=== PATIENT | female | born 1995 | race African-American/Black ===

== ENCOUNTER → 2017-03-12 | Outpatient (CLI) | payer OTHER ==
[2014-07-27 04:10] VITALS: BP 120/66
--- NOTE | 2017-03-12 15:36 | RAD ---
DATE: 03/12/2017 EXAM: DIGITAL DIAGNOSTIC BILATERAL HISTORY: Bilateral breast pain, family history of breast cancer COMPARISON: Baseline study This study was interpreted with the benefit of Computerized Aided Detection (CAD). The breast parenchyma is heterogeneously dense, which could reduce sensitivity of mammography. Breast parenchyma level C. FINDINGS: No suspicious breast densities are identified. No microcalcifications are evident. The skin and axillary regions are unremarkable. IMPRESSION: 1. No significant abnormality is identified. 2. Clinical surveillance is suggested. Follow-up mammography at age 35 or earlier if clinically indicated. BI-RADS 1-negative Mammography is a sensitive method for finding small breast cancers, but it does not detect them all and is not a substitute for careful clinical examination. A negative mammogram does not negate a clinically suspicious finding and should not result in delay in biopsying a clinically suspicious abnormality. "Our facility is accredited by the [employer] Mammography Program."
== END | disposition home or self-care (01) ==
LOC: MAMMO 13:45
PROVIDERS: ATTEND Obstetrics & Gynecology
DX: N64.4 Mastodynia (principal); Z80.3 Family history of malignant neoplasm of breast
CPT/HCPCS: G0204; 77066

== ENCOUNTER 2017-04-13 20:39 | Emergency (ER) | payer OTHER ==
[2017-04-13 20:59] LABS: URINE HCG POC HCG NEGATIVE (Negative)
[2017-04-13] MEDS: IV NORMAL SALINE 1000ML BAG 1,000 ML IV (21:25)
[2017-04-13] MEDS: METOCLOPRAMIDE HCL 10 MG/2 ML VIAL. IV (21:32)
[2017-04-13] MEDS: diphenhydrAMINE 50 MG/ML VIAL IV (21:33)
[2017-04-13] MEDS: DEXAMETHASONE SOD PHOS 4 MG/ML VIAL IV (21:35)
[2017-04-13 21:54] LABS: OBC FLU VALID
== END 2017-04-13 22:40 | disposition home or self-care (01) ==
LOC: ER 20:39
DX: G43.909 Migraine, unspecified, not intractable, without status migrainosus (principal); R05 Cough; M79.1 Myalgia; J45.909 Unspecified asthma, uncomplicated; Z88.8 Allergy status to other drugs, medicaments and biological substances
CPT/HCPCS: 71010; 81025; 87804; 87804-59; 93005; 96361; 96374; 96375; 99285-25; J1100; J1200; J2765; J7030

== ENCOUNTER 2018-06-09 20:53 | Emergency (ER) | payer OTHER ==
[~2018-06-09] VITALS: Ht 182.9 cm; Wt 88.5 kg
--- NOTE | 2018-06-09 21:12 | PHYS DOC ---
Past Medical History Past Medical History: Asthma, Migraines (HAYDE HEATH APRN) Past Surgical History: No Surgical History (HAYDE HEATH APRN) Alcohol Use: None Drug Use: None (HAYDE HEATH APRN) Adult General Chief Complaint Chief Complaint: CHEST WALL PAIN HPI HPI Patient is a 23 year old female with history of asthma, migraine headaches, who presents to the ED today complaining of 10 out of 10 left-sided chest pain radiating to her back that began sometime today. Patient denies anything specifically exacerbating or making the pain better. She states the pain is constant. She states she's tried taking naproxen with no relief. Denies any nausea, vomiting, denies any chance she is . (HAYDE HEATH APRN) Review of Systems Review of Systems Constitutional: Denies fever or chills [] Eyes: Denies change in visual acuity, redness, or eye pain [] HENT: Denies nasal congestion or sore throat [] Respiratory: Denies cough or shortness of breath [] Cardiovascular: Reports left-sided chest pain GI: Denies abdominal pain, nausea, vomiting, bloody stools or diarrhea [] : Denies dysuria or hematuria [] Musculoskeletal: Denies back pain or joint pain [] Integument: Denies rash or skin lesions [] Neurologic: Denies headache, focal weakness or sensory changes [] All other systems were reviewed and found to be within normal limits, except as documented in this note. (HAYDE HEATH APRN) Current Medications Current Medications Current Medications Medications (Trade) Dose Ordered Sig/Mili Start Time Stop Time Status Last Admin Dose Admin Aspirin (Vidya Aspirin) 325 mg 1X ONCE 06/09/18 21:15 06/09/18 21:16 DC 06/09/18 21:48 325 MG Cyclobenzaprine HCl (Flexeril) 10 mg 1X ONCE 06/09/18 22:45 06/09/18 22:46 DC 06/09/18 23:05 10 MG Morphine Sulfate (Morphine Sulfate) 2 mg 1X ONCE 06/09/18 22:45 06/09/18 22:46 DC 06/09/18 23:06 2 MG (ALEXA GUEVARA MD) Allergies Allergies Allergies Coded Allergies Type Severity Reaction Last Updated Verified cetirizine Allergy Unknown Anaphylaxis 08/16/13 Yes (ALEXA GUEVARA MD) Physical Exam Physical Exam Constitutional: Well developed, well nourished, no acute distress, non-toxic appearance. [] HENT: Normocephalic, atraumatic, bilateral external ears normal, oropharynx moist, no oral exudates, nose normal. [] Eyes: PERRLA, EOMI, conjunctiva normal, no discharge. [] Neck: Normal range of motion, no tenderness, supple, no stridor. [] Cardiovascular:Heart rate regular rhythm, no murmur [] Lungs & Thorax: Anterior lung bases are clear, patient unable to sit forward and let me listen to her lungs posteriorly. Abdomen: Bowel sounds normal, soft, no tenderness, no masses, no pulsatile masses. [] Skin: Warm, dry, no erythema, no rash. [] Back: No tenderness, no CVA tenderness. [] Extremities: No tenderness, no cyanosis, no clubbing, ROM intact, no edema. [] Neurologic: Alert and oriented X 3, normal motor function, normal sensory function, no focal deficits noted. [] Psychologic: Affect normal, judgement normal, mood normal. [] (HAYDE HEATH APRN) Current Patient Data Vital Signs Vital Signs Date Time Temp Pulse Resp B/P (MAP) Pulse Ox O2 Delivery O2 Flow Rate FiO2 06/09/18 23:00 58 20 114/75 (88) 100 Room Air 06/09/18 21:00 98.3 98.3 (ALEXA GUEVARA MD) Lab Values Laboratory Tests Test 06/09/18 21:10 06/09/18 21:26 White Blood Count 6.2 x10^3/uL (4.0-11.0) Red Blood Count 4.08 x10^6/uL (3.50-5.40) Hemoglobin 12.5 g/dL (12.0-15.5) Hematocrit 37.5 % (36.0-47.0) Mean Corpuscular Volume 92 fL (79-100) Mean Corpuscular Hemoglobin 31 pg (25-35) Mean Corpuscular Hemoglobin Concent 34 g/dL (31-37) Red Cell Distribution Width 13.0 % (11.5-14.5) Platelet Count 218 x10^3/uL (140-400) Neutrophils (%) (Auto) 51 % (31-73) Lymphocytes (%) (Auto) 35 % (24-48) Monocytes (%) (Auto) 10 % (0-9) H Eosinophils (%) (Auto) 4 % (0-3) H Basophils (%) (Auto) 1 % (0-3) Neutrophils # (Auto) 3.1 x10^3uL (1.8-7.7) Lymphocytes # (Auto) 2.1 x10^3/uL (1.0-4.8) Monocytes # (Auto) 0.6 x10^3/uL (0.0-1.1) Eosinophils # (Auto) 0.3 x10^3/uL (0.0-0.7) Basophils # (Auto) 0.0 x10^3/uL (0.0-0.2) Prothrombin Time 12.5 SEC (11.7-14.0) Prothrombin Time INR 1.0 (0.8-1.1) D-Dimer (Shakira) < 0.27 ug/mlFEU Urine Collection Type Unknown Urine Color Yellow Urine Clarity Clear Urine pH 6.5 Urine Specific [place] >=1.030 Urine Protein Negative mg/dL (NEG-TRACE) Urine Glucose (UA) Negative mg/dL (NEG) Urine Ketones (Stick) Negative mg/dL (NEG) Urine Blood Negative (NEG) Urine Nitrite Negative (NEG) Urine Bilirubin Negative (NEG) Urine Urobilinogen Dipstick 1.0 mg/dL (0.2 mg/dL) Urine Leukocyte Esterase Negative (NEG) Urine RBC 0 /HPF (0-2) Urine WBC 0 /HPF (0-4) Urine Squamous Epithelial Cells Mod /LPF Urine Bacteria Few /HPF (0-FEW) Urine Mucus Marked /LPF Sodium Level 140 mmol/L (136-145) Potassium Level 4.2 mmol/L (3.5-5.1) Chloride Level 104 mmol/L (98-107) Carbon Dioxide Level 29 mmol/L (21-32) Anion Gap 7 (6-14) Blood Urea Nitrogen 17 mg/dL (7-20) Creatinine 0.7 mg/dL (0.6-1.0) Estimated GFR (Cockcroft-Gault) 123.4 BUN/Creatinine Ratio 24 (6-20) H Glucose Level 87 mg/dL (70-99) Calcium Level 8.9 mg/dL (8.5-10.1) Magnesium Level 2.2 mg/dL (1.8-2.4) Total Bilirubin 0.3 mg/dL (0.2-1.0) Aspartate Amino Transferase (AST) 15 U/L (15-37) Alanine Aminotransferase (ALT) 22 U/L (14-59) Alkaline Phosphatase 79 U/L (46-116) Creatine Kinase 285 U/L (26-192) H Creatine Kinase MB (Mass) 1.1 ng/mL (0.0-3.6) Creatine Kinase MB Relative Index 0.4 % (0-4) Troponin I Quantitative < 0.017 ng/mL (0.000-0.055) KR-Gxm-A-Type Natriuretic Peptide 34 pg/mL (0-124) Total Protein 7.9 g/dL (6.4-8.2) Albumin 3.9 g/dL (3.4-5.0) Albumin/Globulin Ratio 1.0 (1.0-1.7) Lipase 142 U/L (73-393) Thyroid Stimulating Hormone (TSH) 0.875 uIU/mL (0.358-3.74) Urine Opiates Screen Neg (NEG) Urine Methadone Screen Neg (NEG) Urine Barbiturates Neg (NEG) Urine Phencyclidine Screen Neg (NEG) Urine Amphetamine/Methamphetamine Neg (NEG) Urine Benzodiazepines Screen Neg (NEG) Urine Cocaine Screen Neg (NEG) Urine Cannabinoids Screen Pos (NEG) Urine Ethyl Alcohol Neg (NEG) POC Urine HCG, Qualitative Hcg negative (Negative) Laboratory Tests 06/09/18 21:10 Laboratory Tests 06/09/18 21:10 (ALEXA GUEVARA MD) Lab Values Laboratory Tests Test 06/09/18 21:10 06/09/18 21:26 White Blood Count 6.2 x10^3/uL (4.0-11.0) Red Blood Count 4.08 x10^6/uL (3.50-5.40) Hemoglobin 12.5 g/dL (12.0-15.5) Hematocrit 37.5 % (36.0-47.0) Mean Corpuscular Volume 92 fL (79-100) Mean Corpuscular Hemoglobin 31 pg (25-35) Mean Corpuscular Hemoglobin Concent 34 g/dL (31-37) Red Cell Distribution Width 13.0 % (11.5-14.5) Platelet Count 218 x10^3/uL (140-400) Neutrophils (%) (Auto) 51 % (31-73) Lymphocytes (%) (Auto) 35 % (24-48) Monocytes (%) (Auto) 10 % (0-9) H Eosinophils (%) (Auto) 4 % (0-3) H Basophils (%) (Auto) 1 % (0-3) Neutrophils # (Auto) 3.1 x10^3uL (1.8-7.7) Lymphocytes # (Auto) 2.1 x10^3/uL (1.0-4.8) Monocytes # (Auto) 0.6 x10^3/uL (0.0-1.1) Eosinophils # (Auto) 0.3 x10^3/uL (0.0-0.7) Basophils # (Auto) 0.0 x10^3/uL (0.0-0.2) Prothrombin Time 12.5 SEC (11.7-14.0) Prothrombin Time INR 1.0 (0.8-1.1) D-Dimer (Shakira) < 0.27 ug/mlFEU Urine Collection Type Unknown Urine Color Yellow Urine Clarity Clear Urine pH 6.5 Urine Specific [place] >=1.030 Urine Protein Negative mg/dL (NEG-TRACE) Urine Glucose (UA) Negative mg/dL (NEG) Urine Ketones (Stick) Negative mg/dL (NEG) Urine Blood Negative (NEG) Urine Nitrite Negative (NEG) Urine Bilirubin Negative (NEG) Urine Urobilinogen Dipstick 1.0 mg/dL (0.2 mg/dL) Urine Leukocyte Esterase Negative (NEG) Urine RBC 0 /HPF (0-2) Urine WBC 0 /HPF (0-4) Urine Squamous Epithelial Cells Mod /LPF Urine Bacteria Few /HPF (0-FEW) Urine Mucus Marked /LPF Sodium Level 140 mmol/L (136-145) Potassium Level 4.2 mmol/L (3.5-5.1) Chloride Level 104 mmol/L (98-107) Carbon Dioxide Level 29 mmol/L (21-32) Anion Gap 7 (6-14) Blood Urea Nitrogen 17 mg/dL (7-20) Creatinine 0.7 mg/dL (0.6-1.0) Estimated GFR (Cockcroft-Gault) 123.4 BUN/Creatinine Ratio 24 (6-20) H Glucose Level 87 mg/dL (70-99) Calcium Level 8.9 mg/dL (8.5-10.1) Magnesium Level 2.2 mg/dL (1.8-2.4) Total Bilirubin 0.3 mg/dL (0.2-1.0) Aspartate Amino Transferase (AST) 15 U/L (15-37) Alanine Aminotransferase (ALT) 22 U/L (14-59) Alkaline Phosphatase 79 U/L (46-116) Creatine Kinase 285 U/L (26-192) H Creatine Kinase MB (Mass) 1.1 ng/mL (0.0-3.6) Creatine Kinase MB Relative Index 0.4 % (0-4) Troponin I Quantitative < 0.017 ng/mL (0.000-0.055) GX-Ifb-C-Type Natriuretic Peptide 34 pg/mL (0-124) Total Protein 7.9 g/dL (6.4-8.2) Albumin 3.9 g/dL (3.4-5.0) Albumin/Globulin Ratio 1.0 (1.0-1.7) Lipase 142 U/L (73-393) Thyroid Stimulating Hormone (TSH) 0.875 uIU/mL (0.358-3.74) Urine Opiates Screen Neg (NEG) Urine Methadone Screen Neg (NEG) Urine Barbiturates Neg (NEG) Urine Phencyclidine Screen Neg (NEG) Urine Amphetamine/Methamphetamine Neg (NEG) Urine Benzodiazepines Screen Neg (NEG) Urine Cocaine Screen Neg (NEG) Urine Cannabinoids Screen Pos (NEG) Urine Ethyl Alcohol Neg (NEG) POC Urine HCG, Qualitative Hcg negative (Negative) Laboratory Tests 06/09/18 21:10 Laboratory Tests 06/09/18 21:10 (HAYDE HEATH APRN) EKG EKG [] (HAYDE HEATH APRN) Radiology/Procedures Radiology/Procedures [] (HAYDE HEATH APRN) Course & Med Decision Making Course & Med Decision Making Pertinent Labs and Imaging studies reviewed. (See chart for details) This is a 23-year-old. Presenting to the ED today with chest pain that began this morning. Pain radiates to the back. EKG is negative for any acute findings , troponin is normal, d-dimer is normal, chest x-ray is negative, CBC, CMP with no acute findings. Urine analysis is negative for infection, negative urine hCG. Patient's pain is well controlled. Discharged with diclofenac and cyclobenzaprine for home use. Follow-up with primary care doctor or clinical education coordinator in one week. (HAYDE HEATH APRN) Course & Med Decision Making Staff Physician Addendum: I was working in the ER during the course of this patient's visit. I was available for consultation as needed, but I was not directly involved in the care of this patient. (ALEXA GUEVARA MD) Dragon Disclaimer Dragon Disclaimer This electronic medical record was generated, in whole or in part, using a voice recognition dictation system. (HAYDE HEATH APRN) Departure Departure Impression: Primary Impression: Chest pain Disposition: HOME, SELF-CARE Condition: STABLE Referrals: NO PCP (PCP) Follow-up in one week KENDRA VALENZUELA MD Patient Instructions: Chest Pain (Nonspecific) Additional Instructions: You were evaluated in the emergency room for chest pain. We could not find any acute cause for your pain. You can follow-up with your primary care doctor in one week or the provided clinical education coordinator. Take the prescribed medications as needed for pain. Scripts Cyclobenzaprine Hcl (CYCLOBENZAPRINE HCL) 10 Mg Tablet 1 TAB PO TID, #30 TAB Prov: HAYDE HEATH APRN 06/09/18 Diclofenac Potassium (DICLOFENAC POTASSIUM) 50 Mg Tablet 1 TAB PO BID, #30 TAB 0 Refills Prov: HAYDE HEATH APRN 06/09/18 Problem Qualifiers Primary Impression: Chest pain Chest pain type: unspecified Qualified Codes: R07.9 - Chest pain, unspecified HAYDE HEATH APRN Jun 09, 2018 21:12 ALEXA GUEVARA MD Jun 10, 2018 04:51
[2018-06-09] MEDS ORDERED: ASPIRIN 325 MG TABLET PO ONE (21:15)
[2018-06-09] MEDS ORDERED: MORPHINE SULFATE 4 MG/ML VIAL. IV/SQ PRN (21:15)
[2018-06-09 21:33] LABS: BILIRUBIN,URINE NEGATIVE (NEG); CLARITY,URINE CLEAR; COLOR,URINE YELLOW; NITRITE,URINE NEGATIVE (NEG); PH,URINE 6.5; PROTEIN,URINE NEGATIVE (NEG-TRACE)
[2018-06-09 21:36] LABS: BASO % 1 % (0-3); EOS # 0.3 x10^3/uL (0.0-0.7); EOS % 4 % (0-3); HEMATOCRIT 37.5 % (36.0-47.0); HEMOGLOBIN 12.5 g/dL (12.0-15.5); LYMPH # 2.1 x10^3/uL (1.0-4.8); LYMPH % 35 % (24-48); MEAN CORPUSCULAR HEMOGLOBIN 31 pg (25-35); MEAN CORPUSCULAR HGB CONC 34 g/dL (31-37); MEAN CORPUSCULAR VOLUME 92 fL (79-100); MONO # 0.6 x10^3/uL (0.0-1.1); MONO % 10 % (0-9); NEUT # 3.1 x10^3uL (1.8-7.7); NEUT % 51 % (31-73); PLATELET COUNT 218 x10^3/uL (140-400); RED BLOOD COUNT 4.08 x10^6/uL (3.50-5.40); WHITE BLOOD COUNT 6.2 x10^3/uL (4.0-11.0)
[2018-06-09 21:38] LABS: SQUAMOUS EPITHELIAL CELL,UR MOD /LPF
[2018-06-09 21:39] LABS: BACTERIA,URINE FEW /HPF (0-FEW); RBC,URINE 0 /HPF (0-2); WBC,URINE 0 /HPF (0-4)
[2018-06-09 21:42] LABS: BARBITURATES NEG (NEG); BENZODIAZEPINES NEG (NEG); CANNABINOIDS POS (NEG); COCAINE NEG (NEG); METHADONE NEG (NEG); OPIATES NEG (NEG); PHENCYCLIDINE NEG (NEG)
[2018-06-09 21:43] LABS: AMPHETAMINE/METHAMPHETAMINE NEG (NEG)
[2018-06-09 21:52] LABS: CALCIUM 8.9 mg/dL (8.5-10.1); CREATININE 0.7 mg/dL (0.6-1.0); GFR 123.4; POTASSIUM 4.2 mmol/L (3.5-5.1)
[2018-06-09 21:55] LABS: PROTHROMBIN TIME PATIENT 12.5 SEC (11.7-14.0)
[2018-06-09 22:07] LABS: ALBUMIN 3.9 g/dL (3.4-5.0); MAGNESIUM 2.2 mg/dL (1.8-2.4); TOTAL BILIRUBIN 0.3 mg/dL (0.2-1.0); TOTAL PROTEIN 7.9 g/dL (6.4-8.2)
[2018-06-09 22:09] LABS: D-DIMER < 0.27 ug/mlFEU (0.00-0.50)
[2018-06-09] MEDS ORDERED: MORPHINE SULFATE 4 MG/ML VIAL. IV ONE (22:45)
[2018-06-09] MEDS ORDERED: CYCLOBENZAPRINE 10 MG TABLET. PO ONE (22:45)
[2018-06-09 23:00] VITALS: BP 114/75
[2018-06-09] MEDS ORDERED: CYCL10TA2 PO (23:05)
[2018-06-09] MEDS ORDERED: DICL50TA2 PO (23:05)
--- NOTE | 2018-06-10 04:58 | EKG ---
[facility] [address] [place] [address] Test Date: 2018-06-09 Test Time: 21:02:35 Pat Name: MAGUE BRADLEY Department: Room: Gender: F Assistant Account Manager: : 1995 Requested By: HAYDE HEATH Order Number: [id number] Reading MD: Misael Caro Measurements Intervals [place] Rate: 63 P: 46 WA: 148 QRS: 59 QRSD: 96 T: 39 QT: 370 QTc: 381 Interpretive Statements SINUS RHYTHM INCOMPLETE RIGHT BUNDLE BRANCH BLOCK Electronically Signed On 06-17-2018 10:51:43 TRAINING AND DEVELOPMENT OFFICER by Misael Caro
--- NOTE | 2018-06-10 08:09 | RAD ---
PORTABLE CHEST 1V History: Shortness of air Comparison: April 13, 2017 Findings: AP view of the chest is submitted. There is no new significant infiltrate, pleural fluid, pneumothorax. Heart size is stable. Impression: 1. No acute radiographic abnormality is identified. Electronically signed by: Juventino Barreto MD (06/10/2018 8:06 AM) [id number]
== END 2018-06-09 23:17 | disposition home or self-care (01) ==
LOC: ER 20:53
DX: R07.89 Other chest pain (principal); G43.909 Migraine, unspecified, not intractable, without status migrainosus; J45.909 Unspecified asthma, uncomplicated; Z88.8 Allergy status to other drugs, medicaments and biological substances
CPT/HCPCS: 36415; 71045; 80053; 80307; 81001; 81025; 82553; 83690; 83735; 83880; 84443; 84484; 85025; 85379; 85610; 93005; 96374; 96376; 99284; J2270

== ENCOUNTER 2020-11-18 05:31 | Emergency (ER) | payer SELFPAY ==
[~2020-11-18] VITALS: Ht 154.9 cm; Wt 100.0 kg
[~2020-11-18 05:31] MED LIST: CYCL10TA2 PO; DICL50TA2 PO
[2020-11-18] MEDS ORDERED: IPRATRPIUM/ALBUTEROL 0.5/2.5MG 3 ML NEBU. NEB ONE (06:00)
[2020-11-18] MEDS ORDERED: DEXAMETHASONE 4 MG TABLET PO ONE (06:00)
--- NOTE | 2020-11-18 06:00 | PHYS DOC ---
Past Medical History Past Medical History: Asthma, Migraines (SHEELA HAMMONDS DO) Past Surgical History: No Surgical History (SHEELA HAMMONDS DO) Smoking Status: Current Some Day Smoker Alcohol Use: None Drug Use: None (SHEELA HAMMONDS DO) General Adult EDM: Chief Complaint: ASTHMA HPI: HPI: 25-year-old female past medical history of asthma, presents the ED with complaints of worsening shortness of breath and lateral upper chest tightness (her typical asthma tightness) stating she received prednisone at [facility] 2 weeks ago. Reports this is like her typical asthma but does report headache and fatigue. Does not take any oral control. No known history of Covid and is not vaccinated from Covid. No recent history of hospitalization. Reports history of intubation in childhood. Initially declines Covid testing but later requested Covid testing. (SHEELA HAMMONDS DO) Review of Systems: Review of Systems: Constitutional: Denies fever or chills. [] Eyes: Denies change in visual acuity. [] HENT: Denies nasal congestion or sore throat. [] Respiratory: Denies cough or hemoptysis Cardiovascular: Denies chest pain or edema. [] GI: Denies abdominal pain, nausea, vomiting,or diarrhea. [] : Denies dysuria or hematuria Musculoskeletal: Denies back pain or joint pain. [] Integument: Denies rash or diaphoresis Neurologic: Denies neck stiffness, focal weakness or sensory changes. [] Endocrine: Denies polyuria or polydipsia. [] Lymphatic: Denies swollen glands. [] Psychiatric: Denies depression or anxiety. [] (SHEELA HAMMONDS DO) Heart Score: C/O Chest Pain: No Risk Factors: Risk Factors: DM, Current or recent (<one month) smoker, HTN, HLP, family history of CAD, obesity. Risk Scores: Score 0 - 3: 2.5% MACE over next 6 weeks - Discharge Home Score 4 - 6: 20.3% MACE over next 6 weeks - Admit for Clinical Observation Score 7 - 10: 72.7% MACE over next 6 weeks - Early Invasive Strategies (SHEELA HAMMONDS DO) Allergies: Allergies: Allergies Coded Allergies Type Severity Reaction Last Updated Verified cetirizine Allergy Unknown Anaphylaxis 08/16/13 Yes (SHEELA HAMMONDS DO) Physical Exam: PE: Constitutional: Well developed, well nourished, no acute distress, non-toxic appearance. HENT: Normocephalic, atraumatic, Eyes: EOMI, conjunctiva normal, no discharge. Neck: Normal range of motion, supple, Cardiovascular: S1/2 present, regular rhythm Lungs & Thorax: Speaking in full sentences, bilateral equal chest rise, no tachypnea or increased work of breathing, mild expiratory wheezing worse in bases and on right side, no crackles or rales Abdomen: soft, no tenderness, Skin: Warm, dry, Extremities: No tenderness, no cyanosis, Neurologic: Alert and oriented X 3, normal motor function, normal sensory function, no focal deficits noted. [] Psychologic: Affect normal, judgement normal, mood normal. [] (SHEELA HAMMONDS DO) EKG: EKG: Sinus rhythm 66 bpm, no axis deviation, normal intervals, no T wave inversions, no ST elevations or ST depressions (SHEELA HAMMONDS DO) Radiology/Procedures: Radiology/Procedures: [] (SHEELA HAMMONDS DO) Course & Med Decision Making: Course & Med Decision Making Pertinent Labs and Imaging studies reviewed. (See chart for details) COVID-19 CRITERIA: The patient was evaluated during the global COVID-19 pandemic, and that diagnosis was suspected/considered upon their initial presentation. Their evaluation, treatment and testing was consistent with current guidelines for patients who present with complaints or symptoms that may be related to COVID-19. Concern for shortness of breath in setting of asthma, likely asthma exacerbation, Covid test pending. Chest x-ray, labs and medications pending. EKG unremarkable. Due to shift change patient was signed out to oncoming physician Dr. Berkowitz for further medical evaluation disposition. (SHEELA HAMMONDS DO) Course & Med Decision Making Work-up is unremarkable. Patient has normal vitals at this time. We will place her on prednisone for a asthma exacerbation. Patient's test results and vitals while in the ED were fully reviewed and discussed with the patient. Patient is stable and at this time does not need admission to the hospital. We have discussed strict return precautions and the importance of following up with their Primary Care Physician. Patient stated understanding and was given an opportunity to ask any questions. Patient is in agreement with plan. (CANDY BERKOWITZ MD) Siddhartha Disclaimer: Siddhartha Disclaimer: This electronic medical record was generated, in whole or in part, using a voice recognition dictation system. (SHEELA HAMMONDS DO) Departure Departure Impression: Primary Impression: Asthma exacerbation Disposition: HOME / SELF CARE / HOMELESS Condition: STABLE Referrals: NO PCP (PCP) Patient Instructions: Asthma, Adult Scripts Prednisone (PREDNISONE) 50 Mg Tablet 1 TAB PO DAILY, #5 TAB Prov: CANDY BERKOWITZ MD 11/18/20 SHEELA HAMMONDS DO Nov 18, 2020 06:00 CANDY BERKOWITZ MD Nov 18, 2020 08:10
[2020-11-18 06:22] LABS: BASO % 1 % (0-3); EOS # 0.3 x10^3/uL (0.0-0.7); EOS % 4 % (0-3); HEMATOCRIT 40.2 % (36.0-47.0); HEMOGLOBIN 13.8 g/dL (12.0-15.5); LYMPH # 2.4 x10^3/uL (1.0-4.8); LYMPH % 30 % (24-48); MEAN CORPUSCULAR HEMOGLOBIN 32 pg (25-35); MEAN CORPUSCULAR HGB CONC 34 g/dL (31-37); MEAN CORPUSCULAR VOLUME 93 fL (79-100); MONO # 0.7 x10^3/uL (0.0-1.1); MONO % 8 % (0-9); NEUT # 4.5 x10^3/uL (1.8-7.7); NEUT % 57 % (31-73); PLATELET COUNT 219 x10^3/uL (140-400); RED BLOOD COUNT 4.34 x10^6/uL (3.50-5.40); RED CELL DISTRIBUTION WIDTH 12.7 % (11.5-14.5); WHITE BLOOD COUNT 7.9 x10^3/uL (4.0-11.0)
[2020-11-18 06:31] LABS: CALCIUM 9.5 mg/dL (8.5-10.1); CREATININE 0.9 mg/dL (0.6-1.0); GFR 90.9; POTASSIUM 3.7 mmol/L (3.5-5.1)
[2020-11-18 06:36] LABS: ALBUMIN/GLOBULIN RATIO 0.9 (1.0-1.7); TOTAL BILIRUBIN 0.3 mg/dL (0.2-1.0); TOTAL PROTEIN 8.3 g/dL (6.4-8.2)
--- NOTE | 2020-11-18 07:23 | RAD ---
EXAM: CHEST ONE VIEW. HISTORY: Shortness of breath. COMPARISON: 06/09/2018. FINDINGS: A frontal view of the chest is obtained. There are no confluent infiltrates. There is no pneumothorax or pleural effusion. The heart is not en larged. IMPRESSION: 1. No confluent infiltrates. Electronically signed by: Shaw Darby MD (11/18/2020 7:20 AM) [facility]
[2020-11-18] MEDS ORDERED: PRED50TA PO (08:09)
[2020-11-18 08:13] VITALS: BP 135/79
[2020-11-18] MEDS ORDERED: ACETAMINOPHEN 500 MG TABLET PO ONE (08:15)
[2020-11-18] MEDS ORDERED: VENTOLIN HFA18 GM INH (08:17)
--- NOTE | 2020-11-18 16:26 | NUR ---
IP: Attempted to contact pt concerning covid results. No answer, left a voicemail to return the call.
--- NOTE | 2020-11-19 15:56 | NUR ---
IP: Informed pt of negative covid test. Pt verbalized understanding.
== END 2020-11-18 08:23 | disposition home or self-care (01) ==
LOC: ER 05:31
DX: J45.901 Unspecified asthma with (acute) exacerbation (principal); G43.909 Migraine, unspecified, not intractable, without status migrainosus; F17.200 Nicotine dependence, unspecified, uncomplicated; Z20.822 Contact with and (suspected) exposure to COVID-19; Z88.8 Allergy status to other drugs, medicaments and biological substances
CPT/HCPCS: 36415; 71045; 80053; 81025; 84484; 85025; 87426; 94640; 99285; U0003; U0005